=== PATIENT | female | born 1945 | race Caucasian/White ===

== ENCOUNTER 2017-05-20 14:44 | Emergency (ER) | payer MEDICARE, MEDICAID ==
--- NOTE | 2017-05-20 16:07 | RAD ---
INDICATION: Pain of the distal right great toe after a crush injury TECHNIQUE: 4 views of the right forefoot were obtained. FINDINGS: Overlying the distal tuft of the right great toe is a nondisplaced longitudinally oriented fracture. More proximally at the diaphysis of the same bone there is a horizontally oriented lucent line that extends to the medial and lateral cortices consistent with a nondisplaced fracture. The remaining visualized bones are intact and appropriately aligned. IMPRESSION: Nondisplaced comminuted fracture involving the distal phalanx of the right great toe.
[2017-05-20] MEDS ORDERED: Lidocaine 2% PF * 5 ML VIAL INJ ONE (16:25)
[2017-05-20] MEDS ORDERED: Tetan/Diph/Pertus SYR(Tdap)* 0.5 ML SYR(BOOSTRIX) use SYR IM ONE (16:27)
--- NOTE | 2017-05-20 16:43 | UC ---
Minor Trauma HPI - HPI Summary HPI Summary: Accompanied by friend who lives with her. She states she dropped a glass jug of half gallon milk earlier this afternoon on her right big toe. She states she has fractured her toe in the past. The skin underneath toe burst open and was dressed by her friend's son. - History of Current Complaint Chief Complaint: UCLowerExtremity Stated Complaint: TOE INJURY Time Seen by Provider: 05/20/17 15:41 Hx Obtained From: Patient, Family/Technical Maintenance Technician ?: No Onset/Duration: Sudden Onset, Lasting Hours Onset Of Pain: Immediate Severity Initially: Moderate Severity Currently: Moderate Pain Intensity: 6 Mechanism Of Injury: Blunt Trauma Aggravating Factor(s): Ambulation, Movement, Weight Bearing Alleviating Factor(s): Elevation Associated Signs And Symptoms: Positive: Ecchymosis Related History: Positive: Similar Episode - previous fracture of same toe during fall - Risk Factors Penetrating Injury Risk Factors: Negative - Allergies/Home Medications Allergies/Adverse Reactions: Allergies Allergy/AdvReac Type Severity Reaction Status Date / Time meperidine [From Demerol] Allergy Vomiting Verified 05/20/17 15:12 PMH/Surg Hx/FS Hx/Imm Hx Previously Healthy: Yes Endocrine History: Dyslipidemia, Other - osteoporosis Other Endocrine History: osteoporosis Cardiovascular History: Hypertension GI/ History: Other - urinary incontinence Other GI/ History: urinary incontinence Psychological History: Depression - Surgical History Surgical History: None - Social History Alcohol Use: None Substance Use Type: None Smoking Status (MU): Former Smoker Have You Smoked in the Last Year: No - Immunization History Most Recent Influenza Vaccination: 2013 Most Recent Tetanus Shot: 2008 Most Recent Pneumonia Vaccination: not sure when - but did receive it Review of Systems Constitutional: Negative Musculoskeletal: Other: - pain on right big toe All Other Systems Reviewed And Are Negative: Yes Physical Exam Triage Information Reviewed: Yes Appearance: Well-Appearing, No Pain Distress, Well-Nourished Vital Signs: Initial Vital Signs Temp 98.3 F 05/20/17 15:07 Pulse 78 05/20/17 15:07 Resp 18 05/20/17 15:07 BP 134/74 05/20/17 15:07 Pulse Ox 98 05/20/17 15:07 Vital Signs Reviewed: Yes Eyes: Positive: Conjunctiva Clear Neck: Positive: Supple, Nontender, No Lymphadenopathy Respiratory: Positive: Chest non-tender, Lungs clear, Normal breath sounds, No respiratory distress Cardiovascular: Positive: RRR, No Murmur, Pulses Normal, Brisk Capillary Refill Abdomen Description: Positive: Nontender Procedures - Laceration/Wound Repair 1 Location: lower extremity Description: Linear Anesthesia: Local, 2.0%, Lido Betadine Prep?: Yes Laceration/Wound Explored: clean, no foreign body removed Closure: Single Layer Suture Type: Prolene Number of Sutures: 3 Layer Closure?: No Sterile Dressing Applied?: Yes Minor Trauma Course/Dx - Course Course Of Treatment: xray of right foot shows Nondisplaced comminuted fracture involving the distal phalanx of the right great toe. Post op shoe given to patient, she has cane and walker at home. Ambulation practiced at . Follow up with orthopedic surgery. Laceration repaired as described. Return in 8 days for stitch removal. - Differential Dx/Diagnosis Provider Diagnoses: Fracture of Right Big toe. Laceration right big toe Discharge - Discharge Plan Condition: Stable Disposition: HOME Patient Education Materials: Laceration (ED), Toe Fracture (ED) Referrals: Jasmin Rowan MD [Primary Care Provider] - Fab Forrester MD [Medical Doctor] - Images Feet (Multiple View): 1 - longitudinal laceration on plantar surface of big toe 2cm in length
[2017-05-20 17:39] VITALS: BP 138/77
== END 2017-05-20 17:30 | disposition home or self-care (01) ==
LOC: UCEAST 14:44
DX: S92.424A Nondisplaced fracture of distal phalanx of right great toe, initial encounter for closed fracture (principal); S91.111A Laceration without foreign body of right great toe without damage to nail, initial encounter; W20.8XXA Other cause of strike by thrown, projected or falling object, initial encounter; Y92.9 Unspecified place or not applicable; Z87.891 Personal history of nicotine dependence; Z88.5 Allergy status to narcotic agent
CPT/HCPCS: 12001; 90471; 90715; 99213; G0463

== ENCOUNTER 2019-11-17 13:32 | Inpatient (IN) ==
[2019-11-17] MEDS ORDERED: NS 0.9% 1000 ml BAG 1,000 ML IV ONE ×2 (14:23→15:47)
[2019-11-17 15:17] LABS: Hematocrit 38 % (35-47); Hemoglobin 12.4 g/dL (12.0-16.0); Mean Corpuscular HGB Conc 33 g/dL (31-36); Mean Corpuscular Hemoglobin 30 pg (27-31); Mean Corpuscular Volume 89 fL (80-97); Mean Platelet Volume 8.5 fL (7.4-10.4); Platelet Count 300 10^3/uL (150-450); Red Cell Distribution Width 13 % (10-15); White Blood Count 18.3 10^3/uL (3.5-10.8)
[2019-11-17 15:37] LABS: Albumin 3.9 g/dL (3.2-5.2); Albumin/Globulin Ratio 1.3 (1-3); C Reactive Protein 203.92 mg/L (<8.01); EGFR African American 41.2 (>60); Globulin 2.9 g/dL (2-4); Potassium 3.1 mmol/L (3.5-5.0); Total Bilirubin 0.8 mg/dL (0.2-1.0); Total Protein 6.8 g/dL (6.4-8.9)
[2019-11-17] MEDS ORDERED: Iodixanol (CONTRAST) 320 MG/ML 100 ML SDV IV ONE (15:40)
[2019-11-17 15:55] LABS: Magnesium 1.5 mg/dL (1.9-2.7)
[2019-11-17] MEDS: KCL 20 MEQ/100 ML IVPREMIX 20 MEQ/100 ML BAG IV SCH ×2 (16:11→21:41)
[2019-11-17 16:21] LABS: ABS Basophils 0.1 10^3/ul (0-0.2); ABS Lymphocytes 1.1 10^3/ul (1.0-4.8); ABS Monocytes 1.6 10^3/ul (0-0.8); ABS Neutrophils 15.5 10^3/ul (1.5-7.7); Eosinophil % 0.1 %; Lymphocyte % 6.1 %
[2019-11-17] MEDS ORDERED: cefTRIAXone VIAL 1,000 MG VIAL IM ONE (17:56)
[2019-11-17] MEDS ORDERED: metroNIDAZOLE IV 500 MG/100ML 500 MG/100 ML BAG IVPB ONE (17:56)
[2019-11-17] MEDS ORDERED: Magnesium Sulfate IV 3 GM in NS 0.9% 100 ml BAG 100 ML IVPB ONE (17:57)
[2019-11-17] MEDS ORDERED: Morphine 2 MG/ML SYRINGE IV PRN (18:13)
[2019-11-17] MEDS ORDERED: Prochlorperazine 5 mg/ml 2 ml VIAL (10 mg) IV PRN (18:13)
[2019-11-17] MEDS ORDERED: cefTRIAXone 1 gm/50 mL NS BAG 1 GM/50 ML BAG IV ONE (18:39)
[2019-11-17] MEDS ORDERED: Dextrose 50% Syringe 50 ml 25 GM/50 ML SYRINGE IV PUSH PRN (18:52)
[2019-11-17] MEDS ORDERED: cefTRIAXone 1 gm/50 mL NS BAG 1 GM/50 ML BAG IVPB SCH (19:00)
[2019-11-17] MEDS: Enoxaparin 40 MG/0.4 ML SYR SUBCUT SCH (20:38)
[2019-11-18] MEDS ORDERED: Potassium Chlor 20 meq TAB.ER PO ONE (01:06)
[2019-11-18] MEDS: metroNIDAZOLE IV 500 MG/100ML 500 MG/100 ML BAG IVPB SCH ×3 (04:15→18:18)
[2019-11-18] MEDS: Cholecalciferol (VIT D3) 1,000 unit TAB PO SCH (08:51)
[2019-11-18] MEDS: NS 0.9% 1000 ml BAG 1,000 ML IV SCH ×2 (08:51→23:25)
[2019-11-18 08:57] LABS: ABS Lymphocytes 0.9 10^3/ul (1.0-4.8); ABS Monocytes 1.2 10^3/ul (0-0.8); ABS Neutrophils 10.7 10^3/ul (1.5-7.7); Eosinophil % 0.1 %; Hematocrit 32 % (35-47); Hemoglobin 10.6 g/dL (12.0-16.0); Lymphocyte % 6.7 %; Mean Corpuscular HGB Conc 33 g/dL (31-36); Mean Corpuscular Hemoglobin 30 pg (27-31); Mean Corpuscular Volume 89 fL (80-97); Mean Platelet Volume 8.5 fL (7.4-10.4); Platelet Count 254 10^3/uL (150-450); Red Cell Distribution Width 13 % (10-15); White Blood Count 12.7 10^3/uL (3.5-10.8)
[2019-11-18 09:15] LABS: BUN/Creatinine Ratio 21.1 (8-20); Calcium 8.7 mg/dL (8.6-10.3); EGFR African American 74.3 (>60); EGFR Non-African American 61.4 (>60); Potassium 3.6 mmol/L (3.5-5.0)
[2019-11-18 10:00] LABS: Magnesium 2.5 mg/dL (1.9-2.7)
[2019-11-18] MEDS ORDERED: KCL 10 MEQ/100 ML IVPREMIX 100 ml BAG IV SCH (10:00)
[2019-11-18] MEDS: KCL 20 MEQ/100 ML IVPREMIX 20 MEQ/100 ML BAG IV SCH ×2 (13:37→16:10)
[2019-11-18] MEDS: Enoxaparin 40 MG/0.4 ML SYR SUBCUT SCH (18:16)
[2019-11-18] MEDS: cefTRIAXone 1 gm/50 mL NS BAG 1 GM/50 ML BAG IVPB SCH (20:07)
[2019-11-19] MEDS: metroNIDAZOLE IV 500 MG/100ML 500 MG/100 ML BAG IVPB SCH ×3 (03:09→18:19)
[2019-11-19] MEDS: Cholecalciferol (VIT D3) 1,000 unit TAB PO SCH (09:26)
[2019-11-19] MEDS ORDERED: HYDROmorphone 1 MG/1 ML SYRINGE IV ONE (09:36)
[2019-11-19] MEDS: NS 0.9% 1000 ml BAG 1,000 ML IV SCH (11:03)
[2019-11-19] MEDS ORDERED: HYDROmorphone 1 MG/1 ML SYRINGE IV SLOW PU PRN (14:00)
[2019-11-19] MEDS: Enoxaparin 40 MG/0.4 ML SYR SUBCUT SCH (18:19)
[2019-11-19] MEDS: cefTRIAXone 1 gm/50 mL NS BAG 1 GM/50 ML BAG IVPB SCH (20:23)
[2019-11-19] MEDS: HYDROmorphone 1 MG/1 ML SYRINGE IV SLOW PU PRN (23:53)
[2019-11-20] MEDS: metroNIDAZOLE IV 500 MG/100ML 500 MG/100 ML BAG IVPB SCH ×2 (03:15→16:11)
[2019-11-20] MEDS ORDERED: Rocuronium 50 mg VIAL 10 mg/ml 5 ml VIAL (50 mg) ONE (07:14)
[2019-11-20] MEDS ORDERED: Propofol 10 MG/ML 20 ML BTL ONE (07:14)
[2019-11-20] MEDS ORDERED: Ondansetron 4 mg VIAL 2 MG/ML 2 ml VIAL ONE (07:14)
[2019-11-20] MEDS ORDERED: Lidocaine 2% PF 5 ML VIAL ONE (07:14)
[2019-11-20] MEDS ORDERED: fentaNYL 100 mcg/2 ml 50 MCG/ML VIAL ONE (07:14)
[2019-11-20] MEDS ORDERED: Midazolam 2 mg/2 ml VIAL 1 mg/ml 2 ml VIAL (2 mg) ONE (07:14)
[2019-11-20] MEDS ORDERED: Sodium Citrate/Citric Acid LIQ 15 ML UDC PO ONE (07:16)
[2019-11-20] MEDS ORDERED: Buffered Lidocaine 1% SYRIN 1 ml INTRADERM ONE (07:16)
[2019-11-20] MEDS ORDERED: Famotidine IV 10 MG/ML 2 ml VIAL (20 mg) IV ONE (07:16)
[2019-11-20] MEDS ORDERED: Bupivacaine 0.5% SDV PF 30ML VIAL ONE (07:23)
[2019-11-20] MEDS ORDERED: Levalbuterol 0.63MG/3ML NEB UNIT OF USE INH ONE ×2 (07:32→07:49)
[2019-11-20] MEDS ORDERED: Sodium Citrate/Citric Acid LIQ 15 ML UDC ONE (07:32)
[2019-11-20] MEDS ORDERED: Famotidine IV 10 MG/ML 2 ml VIAL (20 mg) ONE (07:32)
[2019-11-20] MEDS ORDERED: ceFAZolin 2 GM in NS PREMIX 2 GM/100 ML BAG IVPB ONE (07:51)
[2019-11-20] MEDS ORDERED: Lactated Ringers 1000 ml BAG 1,000 ML IV SCH (08:00)
[2019-11-20] MEDS ORDERED: Albuterol/Ipratropium NEB.SOL (2.5/0.5 MG) 3 ML NEB.SOLN INH ONE (08:04)
[2019-11-20] MEDS ORDERED: Albuterol/Ipratropium NEB.SOL (2.5/0.5 MG) 3 ML NEB.SOLN ONE (08:08)
[2019-11-20] MEDS ORDERED: Dexamethasone IV 4 MG/ML VIAL 1 ml VIAL ONE (08:19)
[2019-11-20] MEDS ORDERED: Dexamethasone IV 4 MG/ML VIAL 1 ml VIAL IV SLOW PU ONE (08:30)
[2019-11-20] MEDS ORDERED: HYDROmorphone 1 MG/1 ML SYRINGE ONE (13:08)
[2019-11-20] MEDS ORDERED: Ondansetron 4 mg VIAL 2 MG/ML 2 ml VIAL IV PRN (13:17)
[2019-11-20] MEDS ORDERED: Naloxone 0.4 mg VIAL 0.4 mg/ml 1 ml VIAL IV PRN (13:17)
[2019-11-20] MEDS ORDERED: HYDROmorphone 1 MG/1 ML SYRINGE IV PRN (13:17)
[2019-11-20] MEDS ORDERED: Levalbuterol 0.63MG/3ML NEB UNIT OF USE INH PRN (13:17)
[2019-11-20] MEDS ORDERED: fentaNYL 100 mcg/2 ml 50 MCG/ML VIAL IV PRN (13:17)
[2019-11-20] MEDS ORDERED: EPHEDrine (Pressors) 50 MG/ML VIAL ONE (13:25)
[2019-11-20] MEDS ORDERED: Phenylephrine 40 mcg/mL 10mL (400mcg) SYRINGE ONE (13:25)
[2019-11-20] MEDS: HYDROmorphone 1 MG/1 ML SYRINGE IV SLOW PU PRN ×2 (16:03→23:22)
[2019-11-20] MEDS: Cholecalciferol (VIT D3) 1,000 unit TAB PO SCH (16:56)
[2019-11-20] MEDS: Enoxaparin 40 MG/0.4 ML SYR SUBCUT SCH (18:00)
[2019-11-20] MEDS: cefTRIAXone 1 gm/50 mL NS BAG 1 GM/50 ML BAG IVPB SCH (21:09)
[2019-11-21] MEDS: metroNIDAZOLE IV 500 MG/100ML 500 MG/100 ML BAG IVPB SCH ×3 (00:13→16:53)
[2019-11-21 06:39] LABS: Hematocrit 32 % (35-47); Hemoglobin 10.4 g/dL (12.0-16.0); Mean Corpuscular HGB Conc 32 g/dL (31-36); Mean Corpuscular Hemoglobin 29 pg (27-31); Mean Corpuscular Volume 91 fL (80-97); Mean Platelet Volume 8.2 fL (7.4-10.4); Platelet Count 357 10^3/uL (150-450); Red Blood Count 3.53 10^6 /uL (3.70-4.87); Red Cell Distribution Width 14 % (10-15); White Blood Count 16.3 10^3/uL (3.5-10.8)
[2019-11-21 06:59] LABS: Albumin 3.3 g/dL (3.2-5.2); Albumin/Globulin Ratio 1.2 (1-3); BUN/Creatinine Ratio 13.6 (8-20); EGFR African American 76.2 (>60); Globulin 2.8 g/dL (2-4); Potassium 4.2 mmol/L (3.5-5.0); Total Bilirubin 0.5 mg/dL (0.2-1.0); Total Protein 6.1 g/dL (6.4-8.9)
[2019-11-21] MEDS: Cholecalciferol (VIT D3) 1,000 unit TAB PO SCH (08:46)
[2019-11-21] MEDS ORDERED: HYDROcodone/ACETAMIN 5/325 mg TAB PO PRN (10:19)
[2019-11-21 16:08] VITALS: BP 138/58
== END 2019-11-21 18:55 | disposition short-term general hospital (02) | DRG 419 ==
LOC: ED 13:32 → MED 13:32
PROVIDERS: ADMIT Internal Medicine; ATTEND Internal Medicine

== ENCOUNTER 2019-12-09 12:56 | Inpatient (IN) ==
[2019-12-09] MEDS ORDERED: NS 0.9% 1000 ml BAG 1,000 ML IV.FLUID IV ONE (13:20)
[2019-12-09] MEDS ORDERED: Piperacillin/Tazobac ADVAN 3.375 GM in NS 0.9% 100 ml BAG 100 ML IVPB ONE (13:27)
[2019-12-09 14:05] LABS: ABS Basophils 0.1 10^3/ul (0-0.2); ABS Lymphocytes 1.1 10^3/ul (1.0-4.8); ABS Monocytes 1.2 10^3/ul (0-0.8); ABS Neutrophils 14.3 10^3/ul (1.5-7.7); Eosinophil % 0.3 %; Hematocrit 33 % (35-47); Hemoglobin 10.6 g/dL (12.0-16.0); Lymphocyte % 6.7 %; Mean Corpuscular HGB Conc 32 g/dL (31-36); Mean Corpuscular Hemoglobin 29 pg (27-31); Mean Corpuscular Volume 91 fL (80-97); Mean Platelet Volume 8.9 fL (7.4-10.4); Platelet Count 525 10^3/uL (150-450); Red Blood Count 3.65 10^6 /uL (3.70-4.87); Red Cell Distribution Width 14 % (10-15); White Blood Count 16.8 10^3/uL (3.5-10.8)
[2019-12-09 14:06] LABS: Urine Appearance Cloudy; Urine Bilirubin Negative (Negative); Urine Blood Negative (Negative); Urine Color Yellow; Urine Glucose Negative (Negative); Urine Ketones Trace (Negative); Urine Nitrite Negative (Negative); Urine Protein Negative (Negative); Urine Specific Gravity 1.016 (1.010-1.030); Urine Urobilinogen Negative (Negative)
[2019-12-09 14:18] LABS: Activated Partial Thrombo Time 32.3 seconds (26.0-38.0); INR 1.4 (0.82-1.09)
[2019-12-09 14:19] LABS: ALT 21 U/L (7-52); AST 21 U/L (13-39); Albumin 3.6 g/dL (3.2-5.2); Albumin/Globulin Ratio 0.8 (1-3); Alkaline Phosphatase 148 U/L (34-104); BUN/Creatinine Ratio 17.7 (8-20); Blood Urea Nitrogen 37 mg/dL (6-24); C Reactive Protein 135.09 mg/L (<8.01); CO2 Carbon Dioxide 23 mmol/L (22-32); Calcium 9.2 mg/dL (8.6-10.3); Chloride 103 mmol/L (101-111); EGFR African American 28.1 (>60); EGFR Non-African American 23.2 (>60); Globulin 4.3 g/dL (2-4); Glucose 117 mg/dL (70-100); Potassium 3.6 mmol/L (3.5-5.0); Total Protein 7.9 g/dL (6.4-8.9)
[2019-12-09 14:21] LABS: Influenza A Molecular Negative (Negative); Influenza B Molecular Negative (Negative)
[2019-12-09 15:03] LABS: Anion Gap 20 mmol/L (2-11); Sodium 146 mmol/L (135-145); Troponin I 0.31 ng/mL (<0.03)
[2019-12-09] MEDS ORDERED: Piperacillin/Tazobac ADVAN 3.375 GM in NS 0.9% 100 ml BAG 100 ML IV ONE (16:30)
[2019-12-09] MEDS ORDERED: NS 0.9% IV SCH (16:30)
[2019-12-09] MEDS ORDERED: HYDROmorphone 0.5 MG/0.5 ML SYRINGE IV SLOW PU PRN (16:30)
[2019-12-09] MEDS ORDERED: NS 0.9% 1000 ml BAG 1,000 ML IV SCH (16:45)
[2019-12-09] MEDS ORDERED: Zosyn per Pharmacy NOTE FOLLOW UP SCH (17:00)
[2019-12-09] MEDS ORDERED: Dextrose 50% Syringe 50 ml 25 GM/50 ML SYRINGE IV PUSH PRN (18:06)
[2019-12-09] MEDS ORDERED: ZOSYN 3.375 GM Q8H per EXTENDED INFUSION IV SCH (18:30)
[2019-12-09] MEDS ORDERED: Lactated Ringers 1000 ml BAG 1,000 ML IV SCH ×2 (19:00→20:23)
[2019-12-09] MEDS: Piperacillin/Tazobactam VIAL 3.375 GM in NS 0.9% 100 ml BAG 100 ML IVPB SCH (20:31)
[2019-12-09] MEDS: Mometasone/Formoter 200/5 MDI INH SCH (20:43)
[2019-12-09 22:00] LABS: Troponin I 0.32 ng/mL (<0.03)
[2019-12-10] MEDS: Heparin 5000 UNITS/ML 1 mL VIAL SUBCUT SCH ×4 (00:03→22:01)
[2019-12-10 00:45] LABS: Troponin I 0.29 ng/mL (<0.03)
[2019-12-10] MEDS: Piperacillin/Tazobactam VIAL 3.375 GM in NS 0.9% 100 ml BAG 100 ML IVPB SCH ×3 (02:13→19:44)
[2019-12-10 06:24] LABS: ABS Basophils 0.1 10^3/ul (0-0.2); ABS Eosinophils 0.1 10^3/ul (0-0.6); ABS Monocytes 0.7 10^3/ul (0-0.8); ABS Neutrophils 8.4 10^3/ul (1.5-7.7); Hematocrit 27 % (35-47); Hemoglobin 8.8 g/dL (12.0-16.0); Lymphocyte % 9.4 %; Mean Corpuscular HGB Conc 33 g/dL (31-36); Mean Corpuscular Hemoglobin 30 pg (27-31); Mean Corpuscular Volume 91 fL (80-97); Mean Platelet Volume 8.6 fL (7.4-10.4); Platelet Count 333 10^3/uL (150-450); Red Blood Count 2.96 10^6 /uL (3.70-4.87); Red Cell Distribution Width 14 % (10-15); White Blood Count 10.3 10^3/uL (3.5-10.8)
[2019-12-10 06:44] LABS: Albumin 2.9 g/dL (3.2-5.2); Albumin/Globulin Ratio 0.8 (1-3); C Reactive Protein 100.89 mg/L (<8.01); Calcium 8.4 mg/dL (8.6-10.3); EGFR African American 46.5 (>60); EGFR Non-African American 38.4 (>60); Globulin 3.6 g/dL (2-4); Potassium 3.6 mmol/L (3.5-5.0); Total Bilirubin 0.4 mg/dL (0.2-1.0); Total Protein 6.5 g/dL (6.4-8.9)
[2019-12-10] MEDS: Mometasone/Formoter 200/5 MDI INH SCH ×2 (08:26→19:28)
[2019-12-10] MEDS ORDERED: TOLTERODINE 4 MG PO SCH (09:00)
[2019-12-10] MEDS ORDERED: Perflutren Lipid Microsphere 3 ML VIAL ONE (09:33)
[2019-12-10] MEDS ORDERED: D5LR 1000 ml BAG 1,000 ML IV SCH (14:30)
[2019-12-11] MEDS: Piperacillin/Tazobactam VIAL 3.375 GM in NS 0.9% 100 ml BAG 100 ML IVPB SCH ×3 (02:33→18:14)
[2019-12-11 05:20] LABS: ABS Basophils 0.1 10^3/ul (0-0.2); ABS Eosinophils 0.1 10^3/ul (0-0.6); ABS Lymphocytes 1.1 10^3/ul (1.0-4.8); ABS Monocytes 0.8 10^3/ul (0-0.8); ABS Neutrophils 9.6 10^3/ul (1.5-7.7); Hematocrit 26 % (35-47); Hemoglobin 8.6 g/dL (12.0-16.0); Lymphocyte % 9.3 %; Mean Corpuscular HGB Conc 33 g/dL (31-36); Mean Corpuscular Hemoglobin 30 pg (27-31); Mean Corpuscular Volume 91 fL (80-97); Platelet Count 337 10^3/uL (150-450); Red Blood Count 2.91 10^6 /uL (3.70-4.87); Red Cell Distribution Width 14 % (10-15); White Blood Count 11.6 10^3/uL (3.5-10.8)
[2019-12-11] MEDS: Heparin 5000 UNITS/ML 1 mL VIAL SUBCUT SCH ×3 (05:32→22:43)
[2019-12-11 05:40] LABS: Calcium 8.3 mg/dL (8.6-10.3); EGFR African American 65.8 (>60); EGFR Non-African American 54.3 (>60); Potassium 3.2 mmol/L (3.5-5.0)
[2019-12-11] MEDS: Mometasone/Formoter 200/5 MDI INH SCH ×2 (08:30→22:55)
[2019-12-11] MEDS: KCL 10 MEQ/50 ML IVPREMIX 10 MEQ/50 ML BAG IV SCH ×2 (09:37→10:56)
[2019-12-12] MEDS: Piperacillin/Tazobactam VIAL 3.375 GM in NS 0.9% 100 ml BAG 100 ML IVPB SCH ×3 (02:39→18:22)
[2019-12-12] MEDS: Heparin 5000 UNITS/ML 1 mL VIAL SUBCUT SCH (05:34)
[2019-12-12] MEDS: Mometasone/Formoter 200/5 MDI INH SCH ×2 (08:54→19:14)
[2019-12-12] MEDS: Albuterol HFA INHALER 8 gm MDI INH PRN (09:52)
[2019-12-12 11:02] LABS: ABS Basophils 0.1 10^3/ul (0-0.2); ABS Eosinophils 0.1 10^3/ul (0-0.6); ABS Lymphocytes 1.1 10^3/ul (1.0-4.8); ABS Monocytes 0.8 10^3/ul (0-0.8); ABS Neutrophils 9.9 10^3/ul (1.5-7.7); Eosinophil % 0.9 %; Hematocrit 28 % (35-47); Hemoglobin 9.5 g/dL (12.0-16.0); Lymphocyte % 9.6 %; Mean Corpuscular HGB Conc 34 g/dL (31-36); Mean Corpuscular Hemoglobin 30 pg (27-31); Mean Corpuscular Volume 89 fL (80-97); Mean Platelet Volume 8.8 fL (7.4-10.4); Platelet Count 344 10^3/uL (150-450); Red Blood Count 3.18 10^6 /uL (3.70-4.87); Red Cell Distribution Width 14 % (10-15)
[2019-12-12 11:35] LABS: BUN/Creatinine Ratio 10.3 (8-20); Calcium 8.6 mg/dL (8.6-10.3); EGFR African American 87.6 (>60); EGFR Non-African American 72.4 (>60); Magnesium 1.3 mg/dL (1.9-2.7)
[2019-12-12 11:52] LABS: Potassium 2.7 mmol/L (3.5-5.0)
[2019-12-12] MEDS ORDERED: Potassium Chlor 20 meq TAB.ER PO ONE (11:57)
[2019-12-12] MEDS ORDERED: Magnesium Sulf 4 GM/100 ML IV 4,000 MG/100 ML BAG IVPB ONE (11:57)
[2019-12-12] MEDS: KCL 20 MEQ/100 ML IVPREMIX 20 MEQ/100 ML BAG IV SCH ×2 (12:36→17:02)
[2019-12-12] MEDS: Enoxaparin 40 MG/0.4 ML SYR SUBCUT SCH (14:03)
[2019-12-13] MEDS: Piperacillin/Tazobactam VIAL 3.375 GM in NS 0.9% 100 ml BAG 100 ML IVPB SCH ×3 (02:55→18:22)
[2019-12-13 07:53] LABS: ABS Basophils 0.1 10^3/ul (0-0.2); ABS Eosinophils 0.1 10^3/ul (0-0.6); ABS Lymphocytes 1.2 10^3/ul (1.0-4.8); ABS Monocytes 0.7 10^3/ul (0-0.8); Eosinophil % 1.1 %; Hematocrit 28 % (35-47); Hemoglobin 9.2 g/dL (12.0-16.0); Lymphocyte % 9.6 %; Mean Corpuscular HGB Conc 33 g/dL (31-36); Mean Corpuscular Hemoglobin 30 pg (27-31); Mean Corpuscular Volume 90 fL (80-97); Mean Platelet Volume 8.8 fL (7.4-10.4); Platelet Count 311 10^3/uL (150-450); Red Blood Count 3.11 10^6 /uL (3.70-4.87); Red Cell Distribution Width 14 % (10-15); White Blood Count 12.1 10^3/uL (3.5-10.8)
[2019-12-13 08:11] LABS: BUN/Creatinine Ratio 9.5 (8-20); Calcium 8.4 mg/dL (8.6-10.3); EGFR African American 93.1 (>60); EGFR Non-African American 76.9 (>60); Potassium 3.4 mmol/L (3.5-5.0)
[2019-12-13] MEDS ORDERED: Potassium Chloride LIQUID 20 MEQ/15 ML LIQUID PO ONE (08:15)
[2019-12-13] MEDS: Mometasone/Formoter 200/5 MDI INH SCH ×2 (09:15→19:01)
[2019-12-13] MEDS: Albuterol HFA INHALER 8 gm MDI INH PRN (09:15)
[2019-12-13 10:00] LABS: C Reactive Protein 175.45 mg/L (<8.01)
[2019-12-13] MEDS: Enoxaparin 40 MG/0.4 ML SYR SUBCUT SCH ×2 (15:55)
[2019-12-14] MEDS: Piperacillin/Tazobactam VIAL 3.375 GM in NS 0.9% 100 ml BAG 100 ML IVPB SCH ×3 (02:53→17:39)
[2019-12-14] MEDS: Mometasone/Formoter 200/5 MDI INH SCH ×2 (10:50→19:48)
[2019-12-14] MEDS: Enoxaparin 40 MG/0.4 ML SYR SUBCUT SCH (17:39)
[2019-12-15] MEDS: Piperacillin/Tazobactam VIAL 3.375 GM in NS 0.9% 100 ml BAG 100 ML IVPB SCH ×3 (02:26→17:35)
[2019-12-15 11:25] LABS: ABS Basophils 0.1 10^3/ul (0-0.2); ABS Eosinophils 0.2 10^3/ul (0-0.6); ABS Lymphocytes 0.9 10^3/ul (1.0-4.8); ABS Monocytes 0.9 10^3/ul (0-0.8); ABS Neutrophils 11.1 10^3/ul (1.5-7.7); Eosinophil % 1.4 %; Hematocrit 30 % (35-47); Hemoglobin 9.8 g/dL (12.0-16.0); Lymphocyte % 7.1 %; Mean Corpuscular HGB Conc 32 g/dL (31-36); Mean Corpuscular Hemoglobin 29 pg (27-31); Mean Corpuscular Volume 89 fL (80-97); Mean Platelet Volume 8.5 fL (7.4-10.4); Platelet Count 330 10^3/uL (150-450); Red Blood Count 3.41 10^6 /uL (3.70-4.87); Red Cell Distribution Width 14 % (10-15); White Blood Count 13.1 10^3/uL (3.5-10.8)
[2019-12-15] MEDS: Mometasone/Formoter 200/5 MDI INH SCH ×3 (11:30→19:56)
[2019-12-15 11:52] LABS: Calcium 9.4 mg/dL (8.6-10.3); EGFR African American 91.7 (>60); EGFR Non-African American 75.7 (>60); Magnesium 1.6 mg/dL (1.9-2.7); Potassium 3.6 mmol/L (3.5-5.0)
[2019-12-15] MEDS ORDERED: Magnesium Sulfate 2 gm BAG 2 GM/50 ML BAG IVPB ONE (12:48)
[2019-12-15] MEDS ORDERED: Iodixanol (CONTRAST) 320 MG/ML 100 ML SDV IV SCH (14:58)
[2019-12-15] MEDS: Enoxaparin 40 MG/0.4 ML SYR SUBCUT SCH (15:46)
[2019-12-15] MEDS ORDERED: Furosemide 20 mg/2 ml IV VIAL IV SLOW PU ONE (16:55)
[2019-12-16] MEDS: Piperacillin/Tazobactam VIAL 3.375 GM in NS 0.9% 100 ml BAG 100 ML IVPB SCH (02:47)
[2019-12-16 08:09] VITALS: BP 154/70
[2019-12-16] MEDS: Mometasone/Formoter 200/5 MDI INH SCH (08:23)
[2019-12-16] MEDS ORDERED: Piperacillin/Tazobactam VIAL 3.375 GM in NS 0.9% 100 ml BAG 100 ML IVPB SCH (10:30)
== END 2019-12-16 12:00 | DRG 862 ==
LOC: ED 12:56 → ICU 12:56 → SSU 12-11 14:37
PROVIDERS: ADMIT Surgery; ATTEND Internal Medicine